=== PATIENT | male | born 1960 | race Caucasian/White ===

== ENCOUNTER 2018-10-24 09:32 | Day surgery (SDC) | payer BC, OTHER ==
[2018-10-23 09:27] VITALS: BMI 25.7
[~2018-10-24 09:32] MED LIST: ALPRAZolam 0.25 MG TAB PO PRN; ASPIRIN 325 MG TAB PO ONE; SODIUM CHLORIDE 0.9% 1,000 ML in EMPTY BAG 1 BAG IV ONE
[2018-10-24 10:17] LABS: Basophils % (A) 1 %; Eosinophils # (A) 0.1 k/uL (0-0.7); Eosinophils % (A) 3 %; HCT 42.7 % (39.0-53.0); HGB 14.5 gm/dL (13.0-17.5); Lymphocytes # (A) 1.3 k/uL (1.0-4.8); Lymphocytes % (A) 33 %; MCH 29.7 pg (25.0-35.0); MCV 87.5 fL (80.0-100.0); Mean Platelet Volume 7.4; Monocytes # (A) 0.3 k/uL (0-1.0); Monocytes % (A) 6 %; Neutrophils # (A) 2.2 k/uL (1.3-7.7); Neutrophils % (A) 55 %; Platelet Count 221 k/uL (150-450); RBC 4.88 m/uL (4.30-5.90); RDW 12.6 % (11.5-15.5)
[2018-10-24 10:26] LABS: Anion Gap 7 mmol/L; Blood Urea Nitrogen 15 mg/dL (9-20); Calcium 9.6 mg/dL (8.4-10.2); Carbon Dioxide 29 mmol/L (22-30); Chloride 108 mmol/L (98-107); Glucose 99 mg/dL (74-99); Sodium 144 mmol/L (137-145)
[2018-10-24] MEDS ORDERED: fentaNYL (PF) 50 MCG/ML 2 ML AMP IV ONE (10:37)
[2018-10-24] MEDS ORDERED: LIDOCAINE 1% INJ 10MG/ML (20 ML MDV) SQ ONE (10:41)
[2018-10-24] MEDS ORDERED: VERAPAMIL SYRINGE (5 MG/10 ML) INTRAARTER ONE (10:43)
[2018-10-24] MEDS ORDERED: HEPARIN SODIUM 1,000 UN/ML (10ML VL) IV ONE (10:51)
[2018-10-24] MEDS ORDERED: IOPAMIDOL-370 125ML BTL INJ ONE (10:56)
[2018-10-24] MEDS ORDERED: RX INFO: IV CONTRAST WAS GIVEN 1 EACH MISC MISCELLANE PRN (11:14)
[2018-10-24] MEDS ORDERED: SODIUM CHLORIDE 0.9% 1,000 ML IV SCH (11:15)
--- NOTE | 2018-10-24 12:22 | CC ---
CARDIAC CATHETERIZATION REPORT Mr. Roca is a 58-year-old male with no prior documented history of coronary artery disease who presented with symptoms of progressive angina pectoris recurring with mild physical activity. In view of that, recommendation made regarding cardiac catheterization, the procedures, risks, and complications were discussed with the patient who is in full understanding and agreement. PROCEDURE: Patient was brought to the filling station laborer in a fasting semi-sedated state after receiving fentanyl and Benadryl and achieving moderate conscious sedated state. Using Xylocaine anesthesia and Seldinger technique, a 6-Armenian sheath was introduced in the right radial artery. Selective right and left coronary angiography performed using 5-Armenian 3.5 bend right and left Florence catheter, multiple views of the coronary artery including hemiaxial views were obtained. Following that 5-Armenian tight pigtail catheter was introduced in the left ventricle and a 30 degree ARRIAGA view of the left ventricle was obtained. Following that, the catheter and sheath were removed. Hemostasis was obtained with deployment of a TR band. There was no immediate complication. Patient is returned to his room in stable condition. Of note, the patient received 4500 units of intravenous heparin as well as intra-arterial verapamil. FINDINGS: LEFT MAIN: This is a large-sized vessel, bifurcating into left circumflex, left artery left main coronary artery has no evidence of high-grade stenosis. 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 There is no evidence of antegrade flow. LEFT CIRCUMFLEX:: This is a nondominant vessel, large in caliber giving rise to a large diagonal obtuse marginal branch. The left circumflex has mild intimal disease of 10% to 20% without any evidence of high-grade stenosis. RIGHT CORONARY ARTERY: This is a large dominant vessel, bifurcating distally PDA and posterolateral segment branches. The right coronary artery in the mid segment has a 30% to 40% plaque and gives collaterals to the LAD through the septals all the way to the proximal LAD. LEFT VENTRICULOGRAM: Left ventriculogram is performed in 30 degree ARRIAGA view and revealed minimal anterior wall hypokinesis. Ejection fraction 50%. There was no significant mitral regurgitation. HEMODYNAMICS: There was no gradient across the aortic v12-14 a tumor the penis. CONCLUSION: 1. Chronically occluded proximal left anterior descending artery with collaterals from the right coronary system. 2. Moderate disease in the mid right coronary artery and mild disease in left circumflex. RECOMMENDATION: In view of finding anatomy, I recommend proceeding with evaluation for either percutaneous revascularization for chronic total occlusion or coronary artery bypass grafting with GALLEGOS to LAD. Those options were discussed with the patient and further recommendation will be made. Duration of the procedure is 19 minutes. ALLEN / DEBIN: [id number] /
[2018-10-24 12:23] LABS: Cholesterol 209 mg/dL (<200); HDL Cholesterol 48 mg/dL (40-60); LDL Cholesterol,Calculated 141 mg/dL (0-99); Triglycerides 102 mg/dL (<150)
--- NOTE | 2018-10-24 12:31 | LTR ---
DATE OF SERVICE: 10/24/2018 RE: Indra Roca Dear Dr. Yan; I had the pleasure to perform cardiac catheterization on Mr. Roca at [facility] on October 24, 2018 and a full copy of the procedure note will be forwarded to you. In brief, he was found to have a totally occluded proximal LAD with collaterals from the right coronary system. At this time, I would recommend to proceed with evaluation for either coronary bypass grafting or percutaneous revascularization for chronic total occlusion. I will keep you updated on his progress and thank you again for allowing me to participate in this patient's care. Please feel free to call for any questions. Sincerely yours, MD ZENON AlexanderL / DEBIN: [id number] /
[2018-10-24] MEDS: ATORVASTATIN 40 MG TAB PO SCH (14:15)
[2018-10-24] MEDS: ISOSORBIDE MONONITRATE ER 30 MG TAB.ER.24H PO SCH (14:15)
[2018-10-25 06:45] LABS: Anion Gap 6 mmol/L; Blood Urea Nitrogen 17 mg/dL (9-20); Calcium 9.1 mg/dL (8.4-10.2); Carbon Dioxide 26 mmol/L (22-30); Chloride 109 mmol/L (98-107); Glucose 107 mg/dL (74-99); Sodium 141 mmol/L (137-145)
[2018-10-25 07:09] LABS: Potassium 4.1 mmol/L (3.5-5.1)
[2018-10-25] MEDS ORDERED: PANTOPRAZOLE 40 MG TABLET PO SCH (07:30)
[2018-10-25] MEDS ORDERED: ASPIRIN 81 MG PO SCH (09:00)
[2018-10-25] MEDS: ISOSORBIDE MONONITRATE ER 30 MG TAB.ER.24H PO SCH (09:23)
[2018-10-25] MEDS: ATORVASTATIN 40 MG TAB PO SCH (09:23)
[2018-10-25 10:08] VITALS: BP 127/67; PULSE 67; RESP 20; TEMP 97.6
--- NOTE | 2018-10-25 10:09 | P.GSCN ---
History of Present Illness Consult date: 10/25/18 Reason for Consult: Chronic total occlusion of the LAD, surgical recommendations Requesting physician: Sherri Chen History of present illness: This is a 58-year-old very active gentleman who follows with Dr. Yan on an outpatient basis. Previous medical history includes multiple orthopedic surgeries, bilateral lower extremity varicose vein laser surgery, GERD, and significant family history of early coronary artery disease with father having open heart surgery at 60 years old in uncle from myocardial infarction at 40 years old. The sternum is very active and exercises on a regular basis. For the previous 3 months he has noticed DC decreased exercise tolerance along with increased shortness of breath. He reports feelings of heat and burning in his throat lungs after 10-15 minutes of activity. He does complain of heartburn -like feeling as well as diaphoresis. He denies any syncopal episodes, nausea, or any other aggravating or relieving symptoms. He reported to cardiology associates and was recommended to undergo heart catheterization which was completed yesterday at which demonstrated chronic total occlusion of the LAD with collaterals from the right side, RCA 30-40% plaque, LV gram with EF 50%. Dr. Wright from cardiothoracic surgery was consulted regarding recommendations for surgical revascularization versus percutaneous revascularization. Review of Systems Review of systems was completed and was negative except as noted. - Constitutional Constitutional Comment(s): Decreased exercise tolerance - Respiratory Reports as per HPI, Reports dyspnea - Gastrointestinal Reports as per HPI, Reports heartburn Past Medical History Past Medical History: GERD/Reflux, Vascular Disorder Additional Past Medical History / Comment(s): arthritis, shortness of breath and burning lungs with exertion, fatigue, worsening heart burn, varicose veins gaurang legs tx with laser and chemical History of Any Multi-Drug Resistant Organisms: None Reported Past Surgical History: Back Surgery Additional Past Surgical History / Comment(s): cervical decompression, gaurang vein laser and chemical tx Past Anesthesia/Blood Transfusion Reactions: No Reported Reaction Past Psychological History: No Psychological Hx Reported Smoking Status: Never smoker Past Alcohol Use History: Daily Past Drug Use History: None Reported - Past Family History Father Family Medical History: Cancer Additional Family Medical History / Comment(s): bladder cancer, father had CABG at 60 years old, paternal uncle of myocardial infarction at 40 years old Medications and Allergies Home Medications Medication Instructions Recorded Confirmed Type Omeprazole [PriLOSEC] 1 tab PO DAILY 03/30/14 10/24/18 History Aspirin [Adult Low Dose Aspirin EC] 81 mg PO DAILY 10/23/18 10/24/18 History Naproxen Sodium [Aleve] 1 tab PO DAILY PRN 10/23/18 10/23/18 History Allergies Allergy/AdvReac Type Severity Reaction Status Date / Time No Known Allergies Allergy Verified 10/23/18 09:18 Surgical - Exam Vital Signs Temp Pulse Resp BP Pulse Ox 98.3 F 57 L 16 132/80 98 10/24/18 10:06 10/24/18 10:06 10/24/18 10:06 10/24/18 10:06 10/24/18 10:06 - General well developed, well nourished, no distress, no pain - Eyes PERRL, normal ocular movement - ENT no hearing loss - Neck no masses, no bruits, trachea midline - Respiratory Lungs sounds clear bilaterally. Respirations even, nonlabored. Currently on room air with oxygen saturation 96%. No chest wall deformities. - Cardiovascular S1, S2 present. Regular rate and rhythm, sinus rhythm on telemetry. Palpable peripheral pulses bilaterally. No edema present. No calf pain or tenderness noted. - Abdomen Abdomen: soft, non tender, bowel sounds - Genitourinary Deferred - Rectum Deferred - Integumentary no rash, no growths, no abnormal pigmentation - Neurologic normal coordination, normal sensation - Musculoskeletal normal gait, normal posture - Psychiatric oriented to time, oriented to person, oriented to place, speech is normal, memory intact Results - Labs 10/24/18 09:55 10/25/18 05:41 Abnormal Lab Results - Last 24 Hours (Table) 10/24/18 10/24/18 10/25/18 Range/Units 09:55 09:55 05:41 Chloride 108 H 109 H (98-107) mmol/L Glucose 107 H (74-99) mg/dL Cholesterol 209 H (<200) mg/dL LDL Cholesterol, Calc 141 H (0-99) mg/dL Diabetes panel 10/24/18 10/24/18 10/25/18 Range/Units 09:55 09:55 05:41 Sodium 144 141 (137-145) mmol/L Potassium 4.0 4.1 (3.5-5.1) mmol/L Chloride 108 H 109 H (98-107) mmol/L Carbon Dioxide 29 26 (22-30) mmol/L BUN 15 17 (9-20) mg/dL Creatinine 0.89 0.99 (0.66-1.25) mg/dL Glucose 99 107 H (74-99) mg/dL Calcium 9.6 9.1 (8.4-10.2) mg/dL Triglycerides 102 (<150) mg/dL HDL Cholesterol 48 (40-60) mg/dL Calcium panel 10/24/18 10/25/18 Range/Units 09:55 05:41 Calcium 9.6 9.1 (8.4-10.2) mg/dL Pituitary panel 10/24/18 10/25/18 Range/Units 09:55 05:41 Sodium 144 141 (137-145) mmol/L Potassium 4.0 4.1 (3.5-5.1) mmol/L Chloride 108 H 109 H (98-107) mmol/L Carbon Dioxide 29 26 (22-30) mmol/L BUN 15 17 (9-20) mg/dL Creatinine 0.89 0.99 (0.66-1.25) mg/dL Glucose 99 107 H (74-99) mg/dL Calcium 9.6 9.1 (8.4-10.2) mg/dL Adrenal panel 10/24/18 10/25/18 Range/Units 09:55 05:41 Sodium 144 141 (137-145) mmol/L Potassium 4.0 4.1 (3.5-5.1) mmol/L Chloride 108 H 109 H (98-107) mmol/L Carbon Dioxide 29 26 (22-30) mmol/L BUN 15 17 (9-20) mg/dL Creatinine 0.89 0.99 (0.66-1.25) mg/dL Glucose 99 107 H (74-99) mg/dL Calcium 9.6 9.1 (8.4-10.2) mg/dL - Imaging Additional studies: Heart catheterization films reviewed. Assessment and Plan (1) Coronary artery disease Current Visit: Yes Status: Chronic Code(s): I25.10 - ATHSCL HEART DISEASE OF [place] CORONARY ARTERY W/O ANG PCTRS SNOMED Code(s): 90128229 (2) Hyperlipidemia Current Visit: Yes Status: Chronic Code(s): E78.5 - HYPERLIPIDEMIA, UNSPECIFIED SNOMED Code(s): 57916155 (3) Family history of premature coronary artery disease Current Visit: Yes Status: Chronic Code(s): Z82.49 - FAMILY HX OF I[place]HE[place] HEART DIS AND OTH DIS OF THE CIRC SYS SNOMED Code(s): 888319835 (4) Arthritis Current Visit: Yes Status: Chronic Code(s): M19.90 - UNSPECIFIED OSTEOARTHRITIS, UNSPECIFIED SITE SNOMED Code(s): 1286783 (5) History of vein stripping Current Visit: Yes Status: Chronic Code(s): Z98.890 - OTHER SPECIFIED POSTPROCEDURAL STATES SNOMED Code(s): 431929348 Plan: The patient was seen and examined at the bedside. Chart/diagnostics were reviewed. Heart catheterization films were reviewed with Dr. Wright. Surgical revascularization versus percutaneous intervention was discussed with the patient at the bedside by Dr. Wright. The patient is a surgical candidate for revascularization with the left internal mammary artery to the left anterior descending artery. The usual perioperative course was discussed in detail with the patient, risks and benefits were described in detail, and all questions answered. We recommend the patient find out the recommendations from interventional cardiology regarding chronic total occlusion percutaneous revascularization. If both options are appropriate with equal risk factors than it would become the patient's decision which route he would choose. Most certainly we are willing to do coronary artery bypass surgery, although we do recommend off pump surgery, and this may be done through a minimally invasive approach. We will leave the decision to be made to the patient and Dr. Chen. If surgery is the chosen path, the patient can follow with us in the office to schedule surgery. We recommend continuing aspirin, statin, beta mike therapy. Thank you Dr. Chen for this consult. Please contact us with any questions. Time with Patient: Greater than 30
--- NOTE | 2018-10-25 10:17 | PN ---
PROGRESS NOTE Mr. Roca is a 58-year-old male with no prior documented history of coronary artery disease who presented with symptoms of chest discomfort, underwent cardiac catheterization, was found to have a totally occluded proximal LAD. He was evaluated by the surgical team this morning. He is doing well this morning. He has no symptoms of chest discomfort. He has no dizziness or palpitation. He denies any nausea. He continues to be on aspirin once a day, Lipitor 40 mg daily, isosorbide mononitrate 30 mg daily. PHYSICAL EXAMINATION: Blood pressure is running in the 90s with the heart rate in the 50s. LUNGS: Clear. HEART: Regular rate and rhythm. S1, S2. No S3. No rub. ABDOMEN: Soft, nontender. EXTREMITIES: No edema. Right radial pulse intact. LAB DATA: Lab data revealed a BUN and creatinine 17 and 0.99. His LDL is 141. IMPRESSION: 1. Totally occluded proximal left anterior descending artery with collaterals from the left system. 2. Hyperlipidemia. RECOMMENDATION: Patient will be discharged home today. I will await the input of the high-risk intervention team from [facility] regarding possibility of chronic total occlusion angioplasty and depending on that, further recommendation will be made. Those findings and recommendations were discussed with the patient who is in full understanding and agreement. MMODL / IJN: [id number] /
== END 2018-10-25 11:24 | disposition home or self-care (01) ==
LOC: CATHCVL 09:32 → 3SCARD 10:59 → CATHCVL 10-25 11:24
PROVIDERS: ATTEND Internal Medicine Interventional Cardiology
DX: I25.110 Atherosclerotic heart disease of native coronary artery with unstable angina pectoris (principal); I25.82 Chronic total occlusion of coronary artery; E78.5 Hyperlipidemia, unspecified; M19.90 Unspecified osteoarthritis, unspecified site; K21.9 Gastro-esophageal reflux disease without esophagitis; Z82.49 Family history of ischemic heart disease and other diseases of the circulatory system; Z79.1 Long term (current) use of non-steroidal anti-inflammatories (NSAID); Z79.82 Long term (current) use of aspirin; Z79.899 Other long term (current) drug therapy
CPT/HCPCS: 93458; 80061; 80048 ×2; 85025; C1894; C1769; J2001; J3010; J1644; Q9967

== ENCOUNTER → 2020-11-10 | Outpatient (CLI) | payer BC ==
[2020-11-10 08:33] VITALS: BP 143/90; PULSE 68; RESP 18; TEMP 98.1
--- NOTE | 2020-11-10 08:53 | P.HPIM ---
History of Present Illness H&P Date: 11/10/20 Very pleasant 6-year-old male who presents as a initial consult to the [facility] pain clinic. He was referred by Dr. Carlos Coleman for evaluation and cervical epidural steroid injections. He's noted progressive worsening of cervical pain mostly on the right side radiating into his right extremity. Over the past 2 weeks has become severe and debilitating. He was evaluated by his orthopedic docket specialist and stated he was a surgical candidate. He wanted to trial conservative therapy with epidural injections initially. Pain is anywhere between a 6-8 out of 10 in severity describes it as a throbbing, numbing, shooting pain that begins in the right neck and radiates down the entire arm. He's noticed some weakness in his hand with performing basic tasks like combing his hair and brushing his teeth. He is right-hand dominant therefore this is very debilitating. He denies any gait abnormalities or bowel or bladder incontinence. Patient has had lumbar epidural steroid injections previously. Patient has not had physical therapy recently. In addition to above, 13-point review of systems is also negative for chest pain, shortness of breath, changes in vision, changes in hearing, new onset weakness, abdominal pain, diarrhea, extreme fatigue, malaise, fever, skin changes, homicidal or suicidal ideation, or bowel or bladder incontinence. Vital Signs: Reviewed in EMR Gen: WDWN, AAOx3, NAD HEENT: NCAT, EOMI, hearing grossly normal Pulm: resp unlabored Neck: supple, trachea midline Cervical Spine: Spinal slightly tilted to the right ROM in flexion cervical spine: Slightly reduced ROM in extension cervical spine: Slightly limited Cervical paravertebral tenderness: normal Cervical Facet tenderness: + Bilateral Spurling test: + Upper extremity Motor: 5/5 hand art display maker, 4/5 wrist flexion on right , 4/5 wrist extension on right, 4/5 bicep flexion on right, 5/5 tricep extension, 5/5 should abduction Upper extremity Sensory:Slightly diminished sensation at the C6 nerve root on the right compared to left. Reflexes: 2/2 bicep, 2/2 brachioradialis, 2/2 tricep Primitive Reflexes: (+) Todd on right, (-) Lhermitte, (-) Myoclonus Neuromuscular: Sensation: Intact from L1-S1 Motor: 5/5 hip flexion, 5/5 knee extension, 5/5 (EHL), 5/5 Dorsiflexion, 5/5 Plantar Flexion bilateral Gait: No gait abnormalities, no assist device utilized Neuro: CN II-XII grossly intact, muscle strength lower extremities PRESERVED Assessment: 1. Cervical spinal stenosis 2. Cervical radiculopathy with myelopathy 3. Cervical spondylosis Plan: 1. Explanation: Opioid and psychological risk scores were reviewed. Diagnoses, prognoses, and multiple treatment options including but not limited to physical therapy, interventional therapies, adjuvant medical therapies, narcotic medication therapies, and surgery were discussed with the patient and all questions were answered to the patient's satisfaction. 2. Opioid agreement: Patient signed narcotic agreement, and was orally counseled to not overuse, abuse, divert, or cell medications, and to take them as prescribed by only 1 healthcare provider. The patient was also counseled to take medications as prescribed by only 1 healthcare provider and to store opioid medications in the safe and preferably locked location. Patient was also counseled against driving or operating heavy equipment while using narcotic medications and also not use alcohol or any illicit or recreational drugs. The patient verbalized understanding that lack of compliance with any of the above and likely result in failure to renew narcotic prescriptions, possible discharge from the clinic, and possible legal ramifications thereafter if indicated. 3. Counseling: The patient was counseled extensively on range of motion exercises. the patient was instructed regarding the importance of smoking cessation, weight control, and exercise in the context of both chronic pain and overall health. 4. Procedures: cervical epidural steroid injection targeting the right C6-7 interspace. I discussed the risks and benefits of the procedure with the patient in detail which include but not limited to bleeding, epidural hematoma, infection. We discussed red flag symptoms of epidural hematoma cervical spine. He doesn't take any anticoagulants or any antiplatelets. 5. Consultations: none at the moment. We'll perform 2 epidural steroid injections and have him follow-up with Dr. Coleman 6. Investigations: reviewed all imaging and MRI reports. 7. Medications: patient is currently taking [place] being prescribed by his orthopedic spine surgeon. 8. Disposition: patient will be scheduled for cervical epidural steroid injection this week with a second one to follow in 2 weeks. Past Medical History Past Medical History: Coronary Artery Disease (CAD), GERD/Reflux, Hearing Disorder / Deafness, Hyperlipidemia, Musculoskeletal Disorder Additional Past Medical History / Comment(s): Arthritis. hx varicose veins gaurang legs tx with laser and chemical. Tinnitus. c/o cervical spine pain, Rt shoulder pain, NT Rt hand. History of Any Multi-Drug Resistant Organisms: None Reported Past Surgical History: Back Surgery, Heart Catheterization With Stent, Orthopedic Surgery Additional Past Surgical History / Comment(s): Laminectomy lower back. Cervical decompression 2013, gaurang vein laser and chemical tx. Lt knee scope. Exc bone spur great toe. PTCA Stents x2 Past Anesthesia/Blood Transfusion Reactions: No Reported Reaction Date of Last Stent Placement:: 10/2018 Past Psychological History: No Psychological Hx Reported Smoking Status: Never smoker Past Alcohol Use History: Daily Additional Past Alcohol Use History / Comment(s): 1 drink daily est Past Drug Use History: None Reported - Past Family History Father Family Medical History: Cancer Additional Family Medical History / Comment(s): bladder cancer, father had CABG at 60 years old, paternal uncle of myocardial infarction at 40 years old Medications and Allergies Home Medications Medication Instructions Recorded Confirmed Type Aspirin [Adult Low Dose Aspirin EC] 81 mg PO DAILY 10/23/18 11/06/20 History Acetaminophen/Diphenhydramine 1 tab PO HS PRN 11/06/20 11/06/20 History [Tylenol PM 500-25mg] Atorvastatin [Lipitor] 40 mg PO HS 11/06/20 11/06/20 History Cholecalciferol [Vitamin D3 (25 2,000 unit PO DAILY 11/06/20 11/06/20 History Mcg = 1000 Iu)] HYDROcodone/APAP 5-325MG [[place] 1 tab PO Q8HR PRN 11/06/20 11/06/20 History 5-325] Ibuprofen/Diphenhydramine Cit 1 each PO HS PRN 11/06/20 11/06/20 History [Motrin Pm Caplet] Multivitamins, Thera [Multivitamin 1 tab PO DAILY 11/06/20 11/06/20 History (formulary)] Prednisone Taper 1 tab PO DIRECTED 11/06/20 11/06/20 History Turmeric Root Extract [Turmeric] 1,000 mg PO DAILY 11/06/20 11/06/20 History Ubidecarenone [Co Q-10] 100 mg PO DAILY 11/06/20 11/06/20 History amLODIPine [Norvasc] 5 mg PO DAILY 11/06/20 11/06/20 History Allergies Allergy/AdvReac Type Severity Reaction Status Date / Time No Known Allergies Allergy Verified 11/06/20 09:46
== END | disposition home or self-care (01) ==
LOC: PNWHC3 07:58
PROVIDERS: ATTEND Anesthesiology
DX: M48.02 Spinal stenosis, cervical region (principal); M47.12 Other spondylosis with myelopathy, cervical region; M47.22 Other spondylosis with radiculopathy, cervical region; M19.90 Unspecified osteoarthritis, unspecified site; E78.5 Hyperlipidemia, unspecified; I25.10 Atherosclerotic heart disease of native coronary artery without angina pectoris; Z79.891 Long term (current) use of opiate analgesic; Z79.82 Long term (current) use of aspirin; Z79.1 Long term (current) use of non-steroidal anti-inflammatories (NSAID); Z98.890 Other specified postprocedural states
CPT/HCPCS: 99211

== ENCOUNTER 2020-11-11 10:30 | Day surgery (SDC) | payer BC ==
[2020-11-11 10:54] VITALS: RESP 16; TEMP 97.1
[2020-11-11] MEDS ORDERED: DEXAMETHASONE SOD PHOSPHATE 10 MG/ML 1 ML VIAL ONE (11:54)
[2020-11-11] MEDS ORDERED: IOPAMIDOL M200 10 ML VIAL ONE (11:54)
--- NOTE | 2020-11-11 12:06 | P.PCN ---
Date of Procedure: 11/11/20 Procedure(s) Performed: . PROCEDURE 1. Cervical epidural steroid injection under fluoroscopic guidance, C6-7 (fluoroscopy images available in the radiology department ) 2. Cervical epidurogram. PREOPERATIVE DIAGNOSIS: 1- Cervical Degenerative Disc Diseases 2- Cervical radiculopathy., 3-cervical spondylosis with cervical Facet arthropathy without myelopathy 4-cervical spinal stenosis POSTOPERATIVE DIAGNOSIS: : 1- Cervical Degenerative Disc Diseases , 2- Cervical radiculopathy. 3-,cervical spondylosis with cervical Facet arthropathy without myelopathy 4-cervical spinal stenosis ANESTHESIA: Local anesthesia with lidocaine 1 % 3 ml only. EBL 0 PROCEDURE INDICATION: The patient with neck pain and radiculitis unresponsive to conservative treatment consents for procedure. PROCEDURE DESCRIPTION / TECHNIQUE: The patient was seen and identified in the preoperative area. Risks, benefits, complications, including but not limited to infections ,bleeding , allergic reactions to the medications ,and not complete pain releife, and alternatives were discussed with the patient, the patient agreed to proceed with the procedure and signed the consent. Patient was taken to the OR and time out was completed. The patient was placed in the prone position on the procedure table. A pillow was placed under the patients chest to increase the cervical interlaminar space. The cervical area was prepped and draped in the usual sterile fashion. Vital signs were closely monitored during the procedure. Using anterior-posterior fluoroscopy, the C6-7 interlaminar space was identified and the skin over this site was marked and then infiltrated with 1% lidocaine subcutaneously. Subsequently, a 20-gauge 3-1/2-inch Tuohy epidural needle was inserted and advanced toward the epidural space by means of the ``hanging-drop technique and guided by AP and lateral fluoroscopy. The correct needle position in the epidural space was verified with the injection of 2 mL of the water soluble contrast dye Isovue-200 and observing an excellent epidurogram with the epidural spread of the dye, after negative aspiration for blood and CSF and in the absence of paresthesias. Again after negative aspiration, mixture containing 20 mg Dexamethasone and 2 ml of preservative-free normal saline injected and a washout of epidurogram was seen. Needle was withdrawn intact, skin was cleansed, and bandages were applied. Complications= none. Disposition= patient was placed in supine position and transferred to the recovery room area in stable condition and there was no evidence of upper or lower extremity motor or sensory deficit after the procedure patient was discharged from recovery room after discharge criteria met and home discharge instructions was given by the staff and patient will follow with the pain clinic in 2-4 weeks
--- NOTE | 2020-11-11 12:13 | FL ---
Fluoroscopy INDICATION: Pain FINDINGS: Fluoroscopy time: 1 seconds. Images obtained: 1. IMPRESSIONS: 1. Documentation of fluoroscopy.
[2020-11-11 12:31] VITALS: BP 121/74; PULSE 62
== END 2020-11-11 12:32 | disposition home or self-care (01) ==
LOC: ORPAIN 10:30
PROVIDERS: ATTEND Specialist
DX: M47.22 Other spondylosis with radiculopathy, cervical region (principal); M50.10 Cervical disc disorder with radiculopathy, unspecified cervical region; M48.02 Spinal stenosis, cervical region; H91.90 Unspecified hearing loss, unspecified ear; E78.5 Hyperlipidemia, unspecified; K21.9 Gastro-esophageal reflux disease without esophagitis; I25.10 Atherosclerotic heart disease of native coronary artery without angina pectoris; M19.90 Unspecified osteoarthritis, unspecified site; Z95.5 Presence of coronary angioplasty implant and graft; Z98.890 Other specified postprocedural states; Z80.52 Family history of malignant neoplasm of bladder; Z82.49 Family history of ischemic heart disease and other diseases of the circulatory system; Z79.82 Long term (current) use of aspirin
CPT/HCPCS: 62321; J1100; Q9966

== ENCOUNTER → 2020-11-26 | Outpatient (CLI) | payer BC ==
--- NOTE | 2020-11-26 15:45 | XR ---
EXAMINATION TYPE: XR chest 2V DATE OF EXAM: 11/26/2020 COMPARISON: None HISTORY: 60-year-old male cervical disc herniation, stenosis, presurgical clearance. TECHNIQUE: Frontal and lateral views FINDINGS: The cardiomediastinal silhouette, aorta, and pulmonary vasculature are within normal limits. Lungs an d pleural spaces are clear. DISH within the mid thoracic spine. IMPRESSION: No acute cardiopulmonary process.
[2020-11-26 16:30] LABS: Basophils % (A) 1 %; Eosinophils # (A) 0.1 k/uL (0-0.7); Eosinophils % (A) 2 %; HCT 49.2 % (39.0-53.0); HGB 16.3 gm/dL (13.0-17.5); Lymphocytes # (A) 1.8 k/uL (1.0-4.8); Lymphocytes % (A) 35 %; MCH 29.4 pg (25.0-35.0); MCV 88.9 fL (80.0-100.0); Mean Platelet Volume 7.6; Monocytes # (A) 0.3 k/uL (0-1.0); Monocytes % (A) 6 %; Neutrophils # (A) 2.7 k/uL (1.3-7.7); Neutrophils % (A) 53 %; Platelet Count 209 k/uL (150-450); RBC 5.54 m/uL (4.30-5.90); RDW 12.5 % (11.5-15.5); WBC 5.1 k/uL (3.8-10.6)
[2020-11-26 16:40] LABS: Partial Thromboplastin Time 23.3 sec (22.0-30.0); Prothrombin Time 10.4 sec (9.0-12.0)
[2020-11-26 16:46] LABS: ALT 50 U/L (4-49); AST 40 U/L (17-59); African American GFR (CKD) >90 (>60 ml/min/1.73 sqM); Albumin 4.5 g/dL (3.5-5.0); Alkaline Phosphatase 107 U/L (38-126); Anion Gap 6 mmol/L; Blood Urea Nitrogen 15 mg/dL (9-20); Calcium 9.5 mg/dL (8.4-10.2); Carbon Dioxide 26 mmol/L (22-30); Chloride 106 mmol/L (98-107); Glucose 93 mg/dL (74-99); Non-African American GFR(CKD) >90 (>60 ml/min/1.73 sqM); Potassium 4.1 mmol/L (3.5-5.1); Sodium 138 mmol/L (137-145); Total Bilirubin 0.7 mg/dL (0.2-1.3); Total Protein 7.5 g/dL (6.3-8.2)
[2020-11-26 18:20] LABS: Appearance,Urine Clear (Clear); Bilirubin,Urine Negative (Negative); Blood,Urine Negative (Negative); Color,Urine Yellow; Glucose,Urine (UA) Negative (Negative); Ketones,Urine Negative (Negative); Leukocyte Esterase,Urine Negative (Negative); Nitrite,Urine Negative (Negative); PH, Urine 5.5 (5.0-8.0); Protein,Urine Negative (Negative); Specific Gravity,Urine 1.023 (1.001-1.035); Urobilinogen,Urine <2.0 mg/dL (<2.0)
== END | disposition home or self-care (01) ==
LOC: RADXRMAIN 15:04
PROVIDERS: ATTEND Orthopaedic Surgery Orthopaedic Surgery of the Spine
DX: Z01.818 Encounter for other preprocedural examination (principal); M48.02 Spinal stenosis, cervical region; M50.20 Other cervical disc displacement, unspecified cervical region
CPT/HCPCS: 71046; 80053; 81003; 85025; 85610; 85730; 93005

== ENCOUNTER 2020-12-08 07:32 | Observation (INO) | payer BC ==
[2020-12-02 11:13] VITALS: BMI 29.1
[~2020-12-08 07:32] MED LIST changes: -ALPRAZolam 0.25 MG TAB PO PRN; -ASPIRIN 325 MG TAB PO ONE; +DEXAMETHASONE SOD PHOSPHATE 4 MG/ML 1 ML VIAL IV ONE; +HYDROmorphone 0.5 MG/0.5 ML SYRINGE IVP PRN; +MIDAZOLAM 2 MG/2 ML VIAL IV PRN; +ONDANSETRON 4 MG/2 ML VIAL IVP ONE; +SCOPOLAMINE 1.5MG/72HR PATCH TRANSDERM ONE; -SODIUM CHLORIDE 0.9% 1,000 ML in EMPTY BAG 1 BAG IV ONE; +ceFAZolin 1,000 MG in SODIUM CHLORIDE 0.9% IRRIGATIO 1,000 ML IRRIGATION PRN
[2020-12-08] MEDS ORDERED: LACTATED RINGERS 1,000 ML IV ONE ×2 (07:49→11:37)
[2020-12-08 07:59] LABS: Glucose,Whole Blood 106 mg/dL (75-99)
[2020-12-08] MEDS ORDERED: fentaNYL (PF) 50 MCG/ML 2 ML AMP ONE (09:42)
[2020-12-08] MEDS ORDERED: ePHEDrine SULFATE/0.9% NACL/PF 50 MG/5 ML SYRINGE IV ONE (09:42)
[2020-12-08] MEDS ORDERED: PHENYLEPHRINE 10 MG/ML VIAL ONE (09:42)
[2020-12-08] MEDS ORDERED: ROCURONIUM 10 MG/ML (10 ML VIAL) IV ONE (09:42)
[2020-12-08] MEDS ORDERED: DEXAMETHASONE SOD PHOSPHATE 10 MG/ML 1 ML VIAL ONE (09:42)
[2020-12-08] MEDS ORDERED: MIDAZOLAM 2 MG/2 ML VIAL ONE (09:42)
[2020-12-08] MEDS ORDERED: PROPOFOL 10 MG/ML 20 ML VIAL IV ONE (09:42)
[2020-12-08] MEDS ORDERED: SUCCINYLCHOLINE CHLORIDE VIAL 200 MG/10 ML VIAL IV ONE (09:42)
[2020-12-08] MEDS ORDERED: LIDOCAINE 1% INJ 10MG/ML (20 ML MDV) ONE (09:42)
[2020-12-08] MEDS ORDERED: THROMBIN (BOVINE) 5,000 UNIT VIAL MISCELLANE ONE (10:34)
[2020-12-08] MEDS ORDERED: GELATIN SPONGE,ABSORB (LARGE) 1 EACH SPONGE MISCELLANE ONE (10:34)
[2020-12-08] MEDS ORDERED: LIDOCAINE 0.5%-EPI 1:200,000 50 ML VIAL SQ ONE ×2 (10:35)
--- NOTE | 2020-12-08 12:20 | XR ---
EXAMINATION TYPE: XR cervical spine 1V DATE OF EXAM: 12/08/2020 COMPARISON: NONE HISTORY: 60-year-old male male needle placement TECHNIQUE: Single crosstable lateral view FINDINGS: The patient is intubated in the operating room. A metallic needle entered the anterior C4-C5 disc int erspace. Anterior endplate spondylosis is noted at this level. IMPRESSION: Surgical needle at the anterior C4-C5 disc interspace.
[2020-12-08] MEDS ORDERED: HYDROmorphone 1 MG/ML 1 ML SYRINGE IVP PRN (12:53)
[2020-12-08] MEDS ORDERED: BENZOCAINE/MENTHOL LOZENG 1 EACH LOZENGE MUCOUS MEM PRN (12:53)
[2020-12-08] MEDS ORDERED: HYDROcodone/APAP 5-325MG 1 EACH TAB PO PRN ×2 (12:54)
[2020-12-08] MEDS ORDERED: ONDANSETRON 4 MG/2 ML VIAL IVP PRN (12:54)
[2020-12-08] MEDS ORDERED: ACETAMINOPHEN TAB 500 MG TAB PO PRN (12:55)
--- NOTE | 2020-12-08 13:01 | P.OP ---
Date of Procedure: 12/08/20 Preoperative Diagnosis: Herniated nucleus pulposis C4 5 C5 6 C6 7, upper extremities radiculopathy, upper extremity weakness, degenerative disc disease, spinal stenosis C4 5 C5 6 C6 7, History of prior anterior cervical discectomy C5 6 Postoperative Diagnosis: same Anesthesia: GETA Pathology: none sent Condition: stable Disposition: PACU Description of Procedure: BRIEF OPERATIVE NOTE Preoperative Diagnosis:Herniated nucleus pulposis C4 5 C5 6 C6 7, upper extremities radiculopathy, upper extremity weakness, degenerative disc disease, spinal stenosis C4 5 C5 6 C6 7, History of prior anterior cervical discectomy C5 6 Postoperative Diagnosis:Herniated nucleus pulposis C4 5 C5 6 C6 7, upper extremities radiculopathy, upper extremity weakness, degenerative disc disease, spinal stenosis C4 5 C5 6 C6 7, History of prior anterior cervical discectomy C5 6 Procedure: Revision Anterior cervical decompression with discectomy and fusion C5 6 Anterior cervical decompression with discectomy and fusion C4 5 C6 7 Placement of interbody graft C4 5 C5 6 C6 7 Application of anterior cervical plate C4 through 7 Increased level of difficulty of case due to excessive scar tissue from prior surgery Surgeon: Dr. Coleman Assistant [employer]: Ziggy SHIPMAN who is present throughout the entire the case persistence during positioning, dissection, exposure, visualization, and all crucial elements of the case as well as closure. Anesthesia: General anesthesia per Dr. Jameson Estimated blood loss: Approximately 50 mL Complications: None apparent Components implanted: K2M [place] anterior cervical plate system with screws and Vikos interbody allograft bone graft with 1 mL of DBX bone putty Disposition: To recovery room in good stable condition. OPERATIVE INDICATIONS The patient has had severe issues in their neck and upper extremities over the past few months. He isn't having weakness at his extremities as well. He is having intractable pain and has been through aggressive conservative treatment but is not had any benefit. His found have a significant stenosis with disc herniations C4 5 C5 6 C6 7 which correlated with his neck and upper extremity pain and symptoms. The patient has been through conservative treatment. We discussed various treatment options including surgery, and the patient wishes to proceed with surgery We discussed the risk, patient's alternatives and benefits of surgery including but not limited to, risk of bleeding risk of infection, risk of need for further surgery, risk of decreased, loss of motion, muscle function, malunion nonunion, hardware failure, nerve damage, paralysis, heart attack, and . OPERATIVE SUMMARY After discussing all the risks, patient alternatives and benefits at length, the patient elected to proceed with surgical intervention, signed informed consent, and presented for their procedure. The patient was seen and examined in the preoperative holding area and the surgical site was marked. The patient was given antibiotics and brought to the operating room. The patient was positioned on the operating room table in a supine position being careful to pad any bony prominences and pressure points. The patient was sedated and intubated by anesthesia in standard fashion. We did have a little bit of a difficult time with intubation. Was successfully intubated without incident. Once the airway and C-spine were stabilized the patient's arms were padded and tucked at her side, with her shoulders gently taped. The head was placed in a donut pad with the neck in good neutral alignment and position. We were careful to maintain the patient's cervical spine and good neutral alignment and position throughout. The patient was prepped and draped in a normal standard fashion. An appropriate timeout and keystone protocol performed. We were able to proceed with the surgery. The local wound area was infiltrated with local anesthetic. An incision was made transversely approximately 2-1/2 cm over the appropriate levels utilizing the prior scar at C5 6. Dissection was taken down subcutaneously to the level of the platysma which was split in line with its fibers. Dissection was taken with a carotid approach, with the trachea and esophagus medial and the carotid sheath laterally. We dissected down to the anterior surface of the vertebral bodies. No was made of significant scar tissue throughout anterior cervical area and it took excessive time of dissection in order to appropriate we dissect and safely access the anterior vertebral bodies at C4 5 C5 6 and C6 7 Intraoperative x-ray was taken which showed a marker at the appropriate level. With the appropriate level positively confirmed, we were able to proceed with discectomy at the appropriate levels first at C4 5 and then at C5 6 and then C6 7. All of the operative levels were exposed appropriately. The patient had all their twitches back, and there was no evidence of recurrent laryngeal issue. The wound was copiously irrigated and suctioned dry as had been done periodically throughout the case. At the appropriate level/levels, I established an annulotomy with an 11 blade scalpel. Anterior osteophytes removed with a bur were rongeurs. A discectomy was performed with a combination of pituitary rongeurs, curettes, a high-speed bur, and Kerrison rongeurs. The posterior longitudinal ligament was taken down as were any posterior osteophytes. There is significant posterior osteophytes at C4 5 C5 6 and significant disc herniation at C4 5 C5 6 and C6 7. I was able to remove these and remove any extruded disc fragments and stenosis. This gave good central and bilateral foraminal decompression. There is no evidence of any dural tear or leak. The endplates were prepared with a high-speed bur. With the endplates in good parallel position, I was able to size for the appropriate size interbody graft. The wound was irrigated and suctioned dry the graft was prepared and malleted into position. It had good alignment and position with the anterior surface flush with the anterior surface of the vertebral bodies. This was done similarly the appropriate levels, starting at C4 5 and C5 6 and then C6 7. With the grafts intact, I was able to measure and contour and appropriate sized plate. The plate was positioned at the midline over the appropriate levels from C4 to C7. Screw holes were established with a hand drill and drill guide. Screws were placed in good alignment and position with excellent bony purchase. They were seated under the locking device. The construct was checked and found to be stable. Intraoperative x-ray was taken which showed good alignment and position of the implants at the appropriate levels. There was no evidence of any dural tear or leak. Good hemostasis was maintained. The wound was copiously irrigated and suctioned dry as had been done periodically throughout the case. The platysma was closed with absorbable suture. The subcutaneous tissue was closed. The subcuticular tissue was closed with absorbable suture. The wound was cleaned and dried and dressed appropriately. A soft cervical collar was placed appropriately. The patient was woken up by anesthesia, extubated, transferred back gently to their hospital bed and brought to the recovery room in good stable condition. The patient will be admitted to the hospital for appropriate postoperative care, medical management and monitoring. We will continue to follow them closely about the postoperative course.
[2020-12-08] MEDS ORDERED: diphenhydrAMINE 25 MG CAP PO PRN (13:43)
[2020-12-08] MEDS ORDERED: ONDANSETRON 4 MG/2 ML VIAL IVP ONE (13:50)
[2020-12-08] MEDS ORDERED: diphenhydrAMINE 50 MG/ML 1 ML VIAL IVP ONE ×2 (13:56→14:30)
[2020-12-08] MEDS ORDERED: SODIUM CHLORIDE 0.9% 1,000 ML IV ONE (14:30)
--- NOTE | 2020-12-08 14:46 | XR ---
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 The patient is in the operating room and intubated. Prevertebral so ft tissue swelling compatible with interval surgery. IMPRESSION: Post surgical change of interval C4-C7 ACDF.
[2020-12-08] MEDS ORDERED: fentaNYL (PF) 50 MCG/ML 2 ML AMP IVP ONE ×3 (14:50→14:56)
[2020-12-08] MEDS ORDERED: diazePAM 5 MG TAB PO PRN (15:01)
[2020-12-08] MEDS: HYDROmorphone 0.5 MG/0.5 ML SYRINGE IVP PRN ×2 (15:48→20:05)
[2020-12-08] MEDS: LACTATED RINGERS 1,000 ML IV SCH (17:12)
[2020-12-08] MEDS: SODIUM CHLORIDE 0.9% 1,000 ML IV SCH (17:13)
[2020-12-08] MEDS ORDERED: ATORVASTATIN 40 MG TAB PO SCH (21:00)
[2020-12-09] MEDS: LACTATED RINGERS 1,000 ML IV SCH (06:27)
[2020-12-09] MEDS: SODIUM CHLORIDE 0.9% 1,000 ML IV SCH (06:27)
[2020-12-09] MEDS ORDERED: ASPIRIN 81 MG PO SCH (09:00)
[2020-12-09] MEDS ORDERED: MULTIVITAMINS, THERA 1 EACH TAB PO SCH (09:00)
[2020-12-09] MEDS ORDERED: amLODIPine 5 MG TAB PO SCH (09:00)
[2020-12-09] MEDS ORDERED: CHOLECALCIFEROL 25 MCG (1000 IU) TABLET PO SCH (09:00)
[2020-12-09] MEDS ORDERED: SENNOSIDES-DOCUSATE SODIUM 1 EACH TAB PO SCH (09:00)
--- NOTE | 2020-12-09 12:15 | P.DS ---
Providers Date of admission: 12/09/20 01:12 Attending physician: Samantha Coleman Primary care physician: Kae Yuriy [facility] Course: The patient presented on the day of admission as per their operative note. He underwent revision discectomy decompression cervical spine with anterior cervical decompression discectomy and fusion C4 5 C5 6 C6 7 as per his operative note. Overnight he has had some difficulty with his swallowing this with his throughout which is expected given the significant scar tissue formation that was seen at the time of his surgery and them and the meticulous dissection that was necessary. We do not have any unexpected untoward events of the time of surgery the patient is having significant soreness at his throat and some acid reflux which is been difficult for him. This is starting to settle now. He has had some soft foods. He feels his right arm has had significant improvement already. He is having soreness around his left shoulder. Physical Exam The incision site is clean dry and intact. There is no erythema no drainage. There is no purulence no evidence of infection. There is some swelling at the area but it is soft. He is tender around the area. There is no drainage no infection. Abdomen soft and nontender. Chest has good excursion with deep inspiration and expiration. The patient has active and passive range of motion intact at the upper and lower extremities. There is no acute change in neurologic status.He has adequate motion of his bilateral upper extremities Hospital Course postoperative day #1 status post anterior cervical decompression with discectomy and fusion with revision D compression discectomy at C5 6 and new decompression discectomy and fusion C4 5 C5 6 C6 7. The patient has been making somewhat slow but decent progress postoperatively. They have completed the prophylactic antibiotics without any signs or symptoms of infection. The patient has been able to advance their diet, and is tolerating diet adequately. The pain was initially controlled with IV medications and is now controlled appropriately with oral medications. The patient has been able to increase their mobilization. The patient's throat his sore but he is starting to get some relief and starting to have some soft diet. I think this will continue to make progress as he continues to heal. Pieces site looks stable with mild swelling but without evidence of severe swelling or obstruction The patient has progressed appropriately. I think they are in stable condition for discharge today. They will be sent home with appropriate prescriptions. I answered their questions to the best of my ability in a language that they can understand and they are agreeable with the plan. They will follow up as directed In approximately 2 weeks or sooner if he is having problems. Patient Condition at Discharge: Fair Plan - Discharge Summary Discharge Rx Participant: Yes New Discharge Prescriptions: New HYDROcodone/APAP 5-325MG [Pateros 5] 1 each PO Q4HR PRN #42 tab PRN Reason: Pain No Action Aspirin [Adult Low Dose Aspirin EC] 81 mg PO DAILY Atorvastatin [Lipitor] 40 mg PO HS Acetaminophen/Diphenhydramine [Tylenol PM 500-25mg] 1 tab PO HS PRN PRN Reason: sleep Ubidecarenone [Co Q-10] 100 mg PO DAILY Turmeric Root Extract [Turmeric] 1,000 mg PO DAILY Multivitamins, Thera [Multivitamin (formulary)] 1 tab PO DAILY Cholecalciferol [Vitamin D3 (25 Mcg = 1000 Iu)] 2,000 unit PO DAILY HYDROcodone/APAP 5-325MG [Pateros 5-325] 1 tab PO Q8HR PRN PRN Reason: Pain amLODIPine [Norvasc] 5 mg PO DAILY Discharge Medication List Aspirin [Adult Low Dose Aspirin EC] 81 mg PO DAILY 10/23/18 [History] Acetaminophen/Diphenhydramine [Tylenol PM 500-25mg] 1 tab PO HS PRN 11/06/20 [History] Atorvastatin [Lipitor] 40 mg PO HS 11/06/20 [History] Cholecalciferol [Vitamin D3 (25 Mcg = 1000 Iu)] 2,000 unit PO DAILY 11/06/20 [History] HYDROcodone/APAP 5-325MG [Pateros 5-325] 1 tab PO Q8HR PRN 11/06/20 [History] Multivitamins, Thera [Multivitamin (formulary)] 1 tab PO DAILY 11/06/20 [History] Turmeric Root Extract [Turmeric] 1,000 mg PO DAILY 11/06/20 [History] Ubidecarenone [Co Q-10] 100 mg PO DAILY 11/06/20 [History] amLODIPine [Norvasc] 5 mg PO DAILY 11/06/20 [History] HYDROcodone/APAP 5-325MG [Pateros 5] 1 each PO Q4HR PRN #42 tab 12/09/20 [Rx] Follow up Appointment(s)/Referral(s): Samantha Coleman, [Doctor of Osteopathic Medicine] - 2 Weeks Activity/Diet/Wound Care/Special Instructions: Keep site clean. May shower with waterproof Tegaderm intact. Do not soak in a tub. After 72 hours postoperatively, patient May remove dressing and then may shower with area uncovered. Leave Steri-Strips intact and allow them to fray off on their own. May ambulate as tolerated. Avoid heavy or rigorous activity. No repetitive bending twisting or lifting. No overhead work. Its okay for the patient to take antacid medicine as needed for indigestion Okay for patient to advance his diet as tolerated Ice to the incision area to help with swelling for approximately 20 minutes at a time up to 6 times a day Discharge Disposition: HOME SELF-CARE
[2020-12-09 13:11] VITALS: BP 128/75; PULSE 70; RESP 14; TEMP 98.2
== END 2020-12-09 14:32 | disposition home or self-care (01) ==
LOC: OR 07:32 → 5NMEDONC 13:14 → OR 12-09 01:12 → 5NMEDONC 12-09 01:12
PROVIDERS: ADMIT Orthopaedic Surgery Orthopaedic Surgery of the Spine; ATTEND Orthopaedic Surgery Orthopaedic Surgery of the Spine
DX: M50.121 Cervical disc disorder at C4-C5 level with radiculopathy (principal); M48.02 Spinal stenosis, cervical region; M50.10 Cervical disc disorder with radiculopathy, unspecified cervical region; I25.10 Atherosclerotic heart disease of native coronary artery without angina pectoris; I10 Essential (primary) hypertension; E78.5 Hyperlipidemia, unspecified; R53.1 Weakness; Z97.3 Presence of spectacles and contact lenses; Z95.5 Presence of coronary angioplasty implant and graft; Z98.890 Other specified postprocedural states; M25.512 Pain in left shoulder; M25.511 Pain in right shoulder; R20.2 Paresthesia of skin; Z79.02 Long term (current) use of antithrombotics/antiplatelets; Z79.82 Long term (current) use of aspirin; Z79.891 Long term (current) use of opiate analgesic; Z79.52 Long term (current) use of systemic steroids; Z79.899 Other long term (current) drug therapy
CPT/HCPCS: 97162; 86900; 86901; 86850; 72020; 22551; 22552 ×2; 20931; G0378; C1713 ×2; C1762; J2250; J0330; J1200; J1100; J2370; J0690 ×3; J2405 ×2; J2001; J3010; J1170 ×2; J2704